=== PATIENT | female | born 1990 | race Hispanic/Latino ===

== ENCOUNTER 2017-02-06 19:31 | Emergency (ER) | payer BC ==
[~2017-02-06] VITALS: Ht 152.4 cm; Wt 60.0 kg
[~2017-02-06 19:31] MED LIST: AUGMENTIN875TAB PO; BENADRYL 50MG C50 MG OR; BIRTH CONTROL; CLEOCIN VAG2 % VA; DIFLUCAN150 MG PO; GILDESS 1/20; IBUPROFEN600 MG PO; LORTAB 7.57.5 MG PO; MEDDOSEPAK OR; ORTHO-NOVUM 7/71 TAB PO; PEPCID20 MG PO; PERCOCET 5/321 COMBO PO; PRENATAL PLUS PO; TERAZOL 30.8 % VA; VENTOLIN HFA IN
[2017-02-06] MEDS ORDERED: METHOCARBAM500 MG PO (20:02)
[2017-02-06] MEDS ORDERED: WELLBUTRIN SR150 MG PO (20:03)
[2017-02-06] MEDS ORDERED: PERCOCET 5/325M1 TAB PO (21:42)
[2017-02-06 21:54] VITALS: BP 110/66
== END 2017-02-06 21:54 | disposition home or self-care (01) | DRG 563 ==
LOC: ED 19:31
DX: S93.602A Unspecified sprain of left foot, initial encounter (principal); X50.0XXA Overexertion from strenuous movement or load, initial encounter; Y93.01 Activity, walking, marching and hiking; Y92.009 Unspecified place in unspecified non-institutional (private) residence as the place of occurrence of the external cause

== ENCOUNTER 2018-04-03 20:15 | Emergency (ER) | payer OTHER ==
[~2018-04-03] VITALS: Ht 152.4 cm; Wt 70.2 kg
[~2018-04-03 20:15] MED LIST changes: +METHOCARBAM500 MG PO; +PERCOCET 5/325M1 TAB PO; +WELLBUTRIN SR150 MG PO
[2018-04-03] MEDS ORDERED: FLEXERIL5 MG PO (20:40)
[2018-04-03 22:19] LABS: HEMATOCRIT 42.4 % (37.0-47.0); HEMOGLOBIN 13.7 g/dl (12.0-16.0); IMMATURE GRANULOCYTES 0.3 % (0.0-5.0); MEAN CELL VOLUME 88.7 fL CALC (80.0-100.0); MEAN CORPUSCULAR HGB 28.7 pG CALC (26.0-32.0); MEAN CORPUSCULAR HGB CONC 32.3 g/L CALC (32.0-36.0); NEUT# 6.72 thou/uL (2.00-7.15); RED BLOOD COUNT 4.78 mill/uL (4.20-5.60); RED CELL DISTRI WIDTH 12.8 % (11.5-15.5)
[2018-04-03 22:21] LABS: URINE BILIRUBIN - DIPSTICK NEGATIVE (NEGATIVE); URINE BLOOD DIPSTICK NEGATIVE (NEGATIVE); URINE COLOR YELLOW; URINE GLUCOSE - DIPSTICK NEGATIVE (NEGATIVE); URINE KETONE NEGATIVE (NEGATIVE); URINE LEUK ESTERASE NEGATIVE (NEGATIVE); URINE NITRITE - DIPSTICK NEGATIVE (Negative); URINE PROTEIN - DIPSTICK NEGATIVE (NEG-TRACE); URINE SPECIFIC GRAVITY 1.025; URINE UROBILINOGEN - DIPSTICK 0.2 E.U./dL (0.2)
[2018-04-03 23:08] LABS: ALBUMIN 4.8 g/dL (3.2-5.0); AMYLASE 68 u/l (30-110); ANION GAP 16 (6-22 (CALC)); BILIRUBIN, TOTAL 0.7 mg/dL (0.0-1.4); BUN 13 mg/dL (7-17); BUN/CREATININE RATIO 29 (12-20 (CALC)); CARBON DIOXIDE 27 mmol/l (22-30); CHLORIDE 104 mmol/l (95-108); CREATININE 0.4 mg/dL (0.5-1.0); GFR > 60 ML/MIN (>=60 (CALC)); GFR FOR AFR.AMER. > 60 ML/MIN (>=60 (CALC)); LIPASE 173 u/l (23-300); POTASSIUM 3.9 mmol/l (3.5-5.1); SODIUM 142 mmol/l (137-146); TOTAL PROTEIN 8.2 g/dL (6.3-8.2)
[2018-04-03 23:13] LABS: ALKALINE PHOSPHATASE 111 u/l (38-126); SGOT/AST 67 u/l (14-36)
[2018-04-04 01:04] VITALS: BP 127/67
== END 2018-04-04 01:13 | disposition home or self-care (01) | DRG 694 ==
LOC: ED 20:15
PROVIDERS: Emergency Medicine
DX: N20.0 Calculus of kidney (principal); Z87.442 Personal history of urinary calculi

== ENCOUNTER 2019-03-15 01:35 | Emergency (ER) | payer OTHER ==
[~2019-03-15] VITALS: Ht 149.9 cm; Wt 67.2 kg
[~2019-03-15 01:35] MED LIST changes: +FLEXERIL5 MG PO
[2019-03-15 02:15] VITALS: BP 107/66
== END 2019-03-15 02:15 | disposition home or self-care (01) | DRG 605 ==
LOC: ED 01:35
DX: S61.012A Laceration without foreign body of left thumb without damage to nail, initial encounter (principal); X58.XXXA Exposure to other specified factors, initial encounter; Y93.89 Activity, other specified

== ENCOUNTER 2019-12-24 11:51 | Emergency (ER) | payer OTHER ==
[~2019-12-24] VITALS: Ht 149.9 cm; Wt 65.0 kg
[2019-12-24 12:46] LABS: HEMATOCRIT 39.8 % (37.0-47.0); HEMOGLOBIN 12.6 g/dl (12.0-16.0); IMMATURE GRANULOCYTES 0.3 % (0.0-5.0); MEAN CELL VOLUME 89.8 fL CALC (80.0-100.0); MEAN CORPUSCULAR HGB 28.4 pG CALC (26.0-32.0); MEAN CORPUSCULAR HGB CONC 31.7 g/dL CAL (32.0-36.0); NEUT# 4.77 thou/uL (2.00-7.15); RED BLOOD COUNT 4.43 mill/uL (4.20-5.60); RED CELL DISTRI WIDTH 12.6 % (11.5-15.5)
[2019-12-24 12:50] LABS: URINE BILIRUBIN - DIPSTICK NEGATIVE (NEGATIVE); URINE BLOOD DIPSTICK LARGE (NEGATIVE); URINE COLOR YELLOW; URINE GLUCOSE - DIPSTICK NEGATIVE (NEGATIVE); URINE KETONE NEGATIVE (NEGATIVE); URINE LEUK ESTERASE NEGATIVE (NEGATIVE); URINE NITRITE - DIPSTICK NEGATIVE (Negative); URINE PROTEIN - DIPSTICK NEGATIVE (NEG-TRACE); URINE SPECIFIC GRAVITY >=1.030; URINE UROBILINOGEN - DIPSTICK 0.2 E.U./dL (0.2)
[2019-12-24 13:06] LABS: ALBUMIN 4.7 g/dL (3.2-5.0); ALKALINE PHOSPHATASE 83 u/l (38-126); ANION GAP 13 (6-22 (CALC)); BILIRUBIN, TOTAL 0.6 mg/dL (0.0-1.4); BUN 21 mg/dL (7-17); BUN/CREATININE RATIO 36 (12-20 (CALC)); CARBON DIOXIDE 25 mmol/l (22-30); CHLORIDE 105 mmol/l (95-108); CREATININE 0.6 mg/dL (0.5-1.0); GFR > 60 ML/MIN (>=60 (CALC)); GFR FOR AFR.AMER. > 60 ML/MIN (>=60 (CALC)); LIPASE 116 u/l (23-300); POTASSIUM 4.5 mmol/l (3.5-5.1); SGOT/AST 22 u/l (14-36); SODIUM 138 mmol/l (137-146); TOTAL PROTEIN 7.8 g/dL (6.3-8.2)
[2019-12-24 13:10] LABS: URINE RBC 25-50 RBC/hpf (0-5)
[2019-12-24] MEDS ORDERED: TAMSULOSIN0.4 MG PO (13:47)
[2019-12-24] MEDS ORDERED: ZOFRAN4 MG/TAB PO (13:47)
[2019-12-24] MEDS ORDERED: PERCOCET 10/31 COMBO PO (13:47)
[2019-12-24 13:58] VITALS: BP 118/74
== END 2019-12-24 13:58 | disposition home or self-care (01) | DRG 694 ==
LOC: ED 11:51
DX: N20.0 Calculus of kidney (principal)